=== PATIENT | male | born 2000 | race Caucasian/White ===

== ENCOUNTER 2018-04-24 20:03 | Emergency (ER) | payer OTHER ==
--- NOTE | 2018-04-24 23:09 | RADIOLOGY REPORT (SQ) ---
EXAM DESCRIPTION: XR FOOT 3 OR MORE VIEWS COMPLETED DATE/TME: 04/24/2018 22:39 CLINICAL HISTORY: 18 years, Male, laceration COMPARISON: None. NUMBER OF VIEWS: 3 TECHNIQUE: 3 view right foot LIMITATIONS: None. FINDINGS: Soft tissue swelling associated with the plantar aspect of the distal foot. Negative for acute fracture. No soft tissue gas. IMPRESSION: Plantar soft tissue swelling. No acute osseous abnormality copyright 2010 [employer]- All Rights Reserved
[2018-04-24] MEDS ORDERED: HYDROCODONE/ACETAMINOPHEN 7.5-325 MG TABLET PO ONE (23:48)
[2018-04-24] MEDS ORDERED: DIPH/PERTUSS(ACELL)/TETANUS VAC/PF 0.5 ML SYR (>=10YO) IM ONE (23:48)
[2018-04-24] MEDS ORDERED: LIDOCAINE 1%/EPINEPHRINE INJ 20 ML VIAL INJ ONE (23:49)
[2018-04-24] MEDS ORDERED: DOXYCYCLINE HYCLATE 100 MG TABLET PO ONE (23:51)
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
[2018-04-25] MEDS ORDERED: OXYCODONE-ACETAMINOPHEN 5-325 MG TABLET PO ONE (03:44)
[2018-04-25 04:45] VITALS: BP 121/77
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
== END 2018-04-25 04:45 | disposition home or self-care (01) ==
LOC: ER 20:03
DX: S91.311A Laceration without foreign body, right foot, initial encounter (principal); S91.114A Laceration without foreign body of right lesser toe(s) without damage to nail, initial encounter; S81.811A Laceration without foreign body, right lower leg, initial encounter; W26.8XXA Contact with other sharp object(s), not elsewhere classified, initial encounter; Y93.39 Activity, other involving climbing, rappelling and jumping off; F17.200 Nicotine dependence, unspecified, uncomplicated; Z88.0 Allergy status to penicillin
CPT/HCPCS: 99283; 90471; 73630 ×2; 90715; J3490